=== PATIENT | male | born 1960 | race Caucasian/White ===

== ENCOUNTER 2017-02-24 06:21 | Outpatient (CLI) | payer BC ==
[~2017-02-24] VITALS: Ht 177.8 cm; Wt 96.8 kg
--- NOTE | ~2017-02-24 | HEMODYNAMI ---
PATIENT:SHERRI SANCHEZ MEDICAL RECORD: [id number] : 60 LOCATION:[facility] ADMISSION DATE: 02/24/17 Generatedon:02/24/201710:00 Patient name: SHERRI SANCHEZ Patient #: [id number] SSN: : 1960 Date of study: 02/24/2017 Page: Of Hemodynamic Procedure Report Patient Data Patient Demographics Procedure consent was obtained First Name: SHERRI Gender: Male Last Name: DANIEL : 1960 Patient #: [id number] Age: 56 year(s) Race: Additional ID: [id number] Contact details Address: [place] [address] State: [place] City: [place] Zip code: [address] Past Medical History Allergies Allergen Reaction Date Comments Reported Statins 02/24/2017 Admission Admission Data Admission Date: 02/24/2017 Admission Time: 6:21 Procedure Procedure Types Cath Procedure Diagnostic Procedure LHC LHC w/Coronaries Miscellaneous Procedures Moderate Sedation up to 30 minutes Procedure Description Procedure Date Procedure Date: 02/24/2017 Procedure Start Time: 9:43 Procedure End Time: 10:00 Procedure Staff Name Function Robbie Bailey MD Performing Physician Leticia Biswas RT Scrub Michael Landa RN Nurse Eklin Raymundo RT Scrub Marquita Cheng RT Monitor Procedure Data Cath Procedure Fluoroscopy Diagnostic fluoroscopy Total fluoroscopy Time: 3.7 time: 3.7 min min Diagnostic fluoroscopy Total fluoroscopy dose: 665 dose: 665 mGy mGy Contrast Material Contrast Material Type Amount (ml) Isovue 300 73 Entry Location Entry Primary Successful Side Size Upsize Upsize Entry Closure Santana ccessful Closure Location (Fr) 1 (Fr) 2 (Fr) Remarks Device Remarks Radial Right 6 Fr Mechanical artery Short Compression Estimated blood loss: 5 ml Diagnostic catheters Device Type Used For End Catheter Placement Terumo 5Fr Zane 110cm LV Angiography catheter Terumo 5Fr Zane 110cm Right Coronary catheter Angiography Terumo 5Fr Zane 110cm Left Coronary catheter Angiography Procedure Complications No complications Procedure Medications Medication Administration Route Dosage 0.9% NaCl I.V. 100 ml/hr Oxygen NC 2 l/min Heparin Flush Bag added to field 2 bags (1000units/500ml NS) Radial Cocktail added to field 1 syringe (Verapomil 2mg/Nitro 400mcg/Heparin 1500units) Versed I.V. 2 mg Fentanyl I.V. 100 mcg Radial Cocktail I.A. 1 syringe (Verapomil 2mg/Nitro 400mcg/Heparin 1500units) Hemodynamics Rest Heart Rate: 60 (bpm) Pressure Samples Time Site Value (mmHg) Purpose Heart Use Rate(bpm) 9:48 LV 139/-1,11 EDP 72 Gradients Valve Time Site Site Mean SEP/DFP Peak To Heart Use 1 2 (mmHg) (sec/min) Peak Rate (mmHg) (bpm) Aortic 9:49 LV AO 56 Snapshots Pre Cath Intra NCS Post Cath Vital Signs Time Heart Resp SPO2 etCO2 [id number] NIBP (mmHg) Rhythm Pain Sedation Rate (ipm) (%) (mmHg) (mmHg) Status Level (bpm) 9:28:23 57 17 99 0 0 133/76(106) NSR 0 (11) 10(A) , No pain 9:32:41 58 15 98 0 0 121/71(116) NSR 0 (11) 10(A) , No pain 9:36:55 66 16 97 0 0 125/72(105) NSR 0 (11) 10(A) , No pain 9:41:11 60 15 97 0 0 135/70(111) NSR 0 (11) 10(A) , No pain 9:45:23 54 16 95 0 0 120/74(98) NSR 0 (11) 10(A) , No pain 9:49:37 89 14 94 0 0 112/68(83) NSR 0 (11) 10(A) , No pain 9:53:49 66 16 93 0 0 112/67(100) NSR 0 (11) 10(A) , No pain 9:58:48 77 13 96 0 0 Measuring NSR 0 (11) 10(A) , No pain 9:58:50 76 13 96 0 0 132/73(99) NSR 0 (11) 10(A) , No pain Medications Time Medication Route Dose Verified Delivered Reason Notes E ffectiveness by by 9::26 0.9% NaCl I.V. 100 Michael Michael Per ml/hr Syeda Landa physician RN RN 9::44 Oxygen NC 2 l/min Michael Michael Per Syeda alvarez RN RN 9:27:04 Heparin Flush added 2 bags Michael Michael used for Bag to Syeda Landa procedure (1000units/500ml field RN RN NS) 9:29:43 Radial Cocktail added 1 Michael Michael for (Verapomil to syringe Lorigan Syeda vasodilation 2mg/Nitro field RN RN 400mcg/Heparin 1500units) 9:40:04 Versed I.V. 2 mg Michael Michael for sedation Syeda Landa RN RN 9:40:20 Fentanyl I.V. 100 mcg Michael Michael for sedation Syeda Landa RN RN 9:47:37 Radial Cocktail I.A. 1 Michael Robbie for (Verapomil syringe Syeda Bailey MD vasodilation 2mg/Nitro RN 400mcg/Heparin 1500units) Procedure Log Time Note 9:09:00 Elkin RANGEL(R) sent for patient. Start room use. 9:09:01 Time tracking: Regular hours 9:09:05 Plan of Care:Hemodynamics will remain stable., Cardiac rhythm will remain stable., Comfort level will be maintained., Respiratory function will remain adequate., Patient/ family verbilizes understanding of procedure., Procedure tolerated without complication., Recovers from procedure without complications.. 9:23:33 Patient received from Pre/Post Procedure Room to [facility] 1 Alert and oriented. Tansferred to table in Supine position. 9:23:34 Warm blankets applied, and inez hugger turned on for patient comfort. 9:23:34 Correct patient and procedure confirmed by team. 9:23:36 Signed procedure consent form obtained from patient. 9:23:37 ECG and BP/O2 sat monitors applied to patient. 9:26:26 0.9% NaCl 100 ml/hr I.V. was administered by Michael Landa RN; Per physician; 9::44 Oxygen 2 l/min NC was administered by Michael Landa RN; Per physician; 9:27:04 Heparin Flush Bag (1000units/500ml NS) 2 bags added to field was administered by Michael Landa RN; used for procedure; 9:27:14 Vital chart was started 9:29:43 Radial Cocktail (Verapomil 2mg/Nitro 400mcg/Heparin 1500units) 1 syringe added to field was administered by Michael Landa RN; for vasodilation; 9:35:54 Rhythm: sinus bradycardia 9:35:56 Full Disclosure recording started 9:36:05 H&P Date Dictated: 02/15/2017 Within 30 days and on chart., H&P Addendum completed by physician on day of procedure. (MUST COMPLETE FOR ALL OUTPATIENTS). 9:36:08 Pre-procedure instructions explained to patient. 9:36:08 Pre-op teaching completed and patient verbalized understanding. 9:36:11 Family in patients room. 9:36:13 Patient NPO since Midnight. 9:36:22 Patient allergic to Statins 9:36:24 Is the patient allergic to Iodine/contrast media? No. 9:36:26 Is patient on blood thinner?No 9:36:30 Patient diabetic? No. 9:37:45 Previous problem with sedation/anesthesia? No ? 9:37:46 Snore? Yes 9:37:47 Sleep apnea? No 9:37:48 Deviated septum? No 9:37:49 Opens mouth fully? Yes 9:37:50 Sticks out tongue? Yes 9:37:51 Airway obstruction? No ? 9:37:53 Dentures? No ? 9:37:56 Pre procedure: right dorsailis pedis pulse 2+ Normal; easily identifiable; not easily obliterated 9:37:58 Modified Elkin's test Ulnar < 7 seconds 9:38:00 Patient pain scale 0/10 ?. 9:38:04 IV patent on arrival in right hand with 0.9% NaCl at O. 9:38:10 Lab results completed and on chart. 9:38:12 Right Radial & Right Groin area was prepped with chlora-prep and draped in sterile fashion 9:38:14 Alarms reviewed by R. N. 9:38:14 Sharps counted by scrub and verified by R.N. 9:38:17 Use device set Radial Dx 9:38:18 Acist Syringe opened to sterile field. 9:38:19 Medline Cath Pack opened to sterile field. 9:38:19 Bag Decanter opened to sterile field. 9:38:19 Terumo 6Fr Slender Glidesheath opened to sterile field. 9:38:20 [place] 260cm J .035 wire opened to sterile field. 9:38:20 Acist Hand Control opened to sterile field. 9:38:20 Acist Manifold opened to sterile field. 9:38:21 Tegaderm 4 x 4 opened to sterile field. 9:38:21 MBrace Wrist Support opened to sterile field. 9:38:26 Cook 21G 4cm Radial Needle opened to sterile field. 9:38:33 Final Timeout: patient, procedure, and site verified with staff and physician. All members of the team are in agreement. 9:38:35 Right Radial site verified by team. 9:38:38 Physical assessment completed. ASA score P 2 - A patient with mild systemic disease as per Robbie Bailey MD. 9:38:41 Sedation plan: IV Moderate Sedation Versed, Fentanyl 9:40:04 Versed 2 mg I.V. was administered by Michael Landa RN; for sedation; 9:40:20 Fentanyl 100 mcg I.V. was administered by Michael Landa RN; for sedation; 9:40:34 Zero performed for pressure channel P1 9:40:43 Baseline sample Acquired. 9:43:13 Procedure started. 9:43:54 Local anesthetic to right radial artery with Lidocaine 2% by Robbie Bailey MD.INITIAL ACCESS ONLY 9:46:10 A 6 Fr Short sheath was inserted into the Right Radial artery 9:47:27 A Terumo 5Fr Zane 110cm catheter was advanced over the wire and used for LV Angiography. 9:47:37 Radial Cocktail (Verapomil 2mg/Nitro 400mcg/Heparin 1500units) 1 syringe I.A. was administered by Robbie Bailey MD; for vasodilation; 9:49:25 LV gram done using FLORES 9:49:29 EF : 55 % 9:49:30 LV hemodynamics recorded. 9:49:32 Injector settings: Ml/sec: 5, Volume: 15, 9:50:45 A Terumo 5Fr Zane 110cm catheter was advanced over the wire and used for Right Coronary Angiography. 9:51:47 A Terumo 5Fr Zane 110cm catheter was advanced over the wire and used for Left Coronary Angiography. 9:55:24 Catheter removed. 9:55:49 Sheath removed intact; hemostasis achieved with Mechanical Compression to the Right Radial artery. 9:55:59 Procedure ended.(Physican Out) 9:56:13 Terumo TR Band Standard opened to sterile field. 9:56:33 Fluoroscopy time 03.70 minutes. 9:56:37 Flurop Dose total: 665 9:56:37 Fluoroscopy dose: 665 mGy 9:57:15 Contrast amount:Isovue 300 73ml. 9:57:17 Sharps counted by scrub and verified by R.N. 9:57:19 TR band inflated with 12cc of air. 9:57:24 Insertion/operative site no bleeding no hematoma. 9:57:31 Post right radial artery:stable, clean and dry 9:57:33 Post Procedure Pulses reassessed and unchanged 9:57:36 Post-procedure physical assessment completed. ASA score P 2 - A patient with mild systemic disease as per Robbie Bailey MD. 9:57:41 Post procedure rhythm: unchanged. 9:57:43 Estimated blood loss: 5 ml 9:57:46 Post procedure instruction explained to patient.Patient verbalizes understanding. 9:57:48 Patient needs reinforcement of post procedure teaching. 9:58:04 Procedure type changed to Cath procedure, Diagnostic procedure, LHC, LHC w/Coronaries, Miscellaneous Procedures, Moderate Sedation up to 30 minutes 9:58:10 Procedure Complication : No complications 9:58:12 See physician's report for complete and final results. 9:59:13 Procedure and supply charges have been captured, reviewed, submitted and are correct. 10:00:12 Vital chart was stopped 10:00:17 Report given to Pre/Post Procedure Room. 10:00:20 Patient transfered to Pre/Post Procedure Room with Stretcher. 10:00:28 Procedure ended. 10:00:28 Full Disclosure recording stopped 10:00:31 End room use (Document Last) Device Usage Item Name Manufacture Quantity Catalog Hospital Part Current Minimal Lot# / Number Charge Number Stock Stock Serial# Code Elieserist Acist 1 [id number] [id number] [id number] [id number] 20 Syringe [employer] Medline Cardinal 1 [id number] 04338 147644 5 Cath Pack Health Bag Microtek 1 2002S 437236 00441 [id number] 5 [employer] Terumo 6Fr Terumo 1 [id number] 265056 962033 456413 [address] [place] [facility] [place] 1 147686 400944 470467 968218 30 260cm J .035 wire Acist Hand Acist 1 45987 161831 124356 905799 5 Control [employer] Inc Acist Acist 1 83210 977112 843547 815255 5 Manifold [employer] Inc Tegaderm 4 3M 1 1626W 692252 481782 078940 5 x 4 MBrace Advanced 1 140-0250-00 856602 49669 377590 5 Wrist Vascular Support [employer] Cook 21G Cook Medical 1 [id number] 868844 385354 660501 5 4cm Radial Needle Terumo 5Fr Terumo 1 40-4139 305835 556357 914563 5 Zane 110cm catheter Terumo TR Terumo 1 [id number] 903329 790125 373905 40 Band Standard Signature Audit Hope Stage Time Signature Unsigned Intra-Procedure 02/24/2017 Marquita 10:00:41 AM Counts RT(R) Signatures Monitor : Marquita Signature : Counts RT Date : Time : [id number] [place] [address]
[~2017-02-24 06:21] MED LIST: ACETAMINOPHEN500 M1 PO; ASCORBIC ACID500 MG PO; ASPIRIN325 MG PO; BAYER CHEWABLE81 MG PO; CO Q-10200 MG PO; EFFIENT10 MG PO; EXFORGE 10-3201 TAB PO; FISH OIL 1,2001 CAP PO; FOLTX TABLET1 EACH PO; NAPROSYN500 MG PO; OMEGA-3100 MG PO; PLAVIX75 MG PO; PRAVACHOL20 MG PO; RED YEAST RICE600 MG PO; TOPROL XL50 MG PO; TURMERIC CURCUMIN; ULTRAM50 MG PO
[2017-02-24] MEDS ORDERED: ZETIA10 MG (07:08)
[2017-02-24] MEDS ORDERED: FENOFIBRATE54 MG PO (07:09)
[2017-02-24] MEDS ORDERED: CLARITIN 10 MG10 MG PO (07:10)
[2017-02-24] MEDS ORDERED: VITAMIN D5000 UNIT PO (07:11)
[2017-02-24] MEDS ORDERED: VITAMIN B-121000 MCG PO (07:12)
[2017-02-24] MEDS ORDERED: RESVERATROL (07:13)
[2017-02-24] MEDS ORDERED: OLIVE LEAF PO (07:14)
[2017-02-24] MEDS ORDERED: [UNRECOGNIZED DRUG - OTHER] PO (07:15)
[2017-02-24] MEDS ORDERED: OMEGA-3100 MG PO (07:16)
[2017-02-24] MEDS ORDERED: GOTU KOLA PO (07:16)
[2017-02-24] MEDS ORDERED: CO Q-10100 MG PO (07:17)
[2017-02-24] MEDS ORDERED: ASCORBIC ACID500 MG PO (07:17)
[2017-02-24] MEDS ORDERED: APPLE CIDER VINEGAR (07:18)
[2017-02-24 07:22] VITALS: BP 126/79; Ht 177.8 cm; Wt 96.8 kg
[2017-02-24 07:39] LABS: BASOPHILS 0.2 % (0-2); EOSINOPHILS 1.6 % (0-7); HEMATOCRIT 42.8 % (42.0-54.0); HEMOGLOBIN 14.6 g/dL (13.5-17.5); IMMATURE GRANULOCYTES 0.2 % (0-5); LYMPHOCYTES 26.2 % (15-50); MCH 30.9 pg (26.0-34.0); MCHC 34.1 g/dL (31.0-37.0); MCV 90.7 fL (80.0-100.0); MEAN PLATELET VOLUME 9.4 fL (7.4-10.4); MONOCYTES 13.8 % (2-11); RBC 4.72 10x6/uL (4.20-6.10); RDW 13.4 % (11.5-14.5); WBC 6.1 10x3/uL (4.8-10.8)
[2017-02-24 07:54] LABS: PLATELET COUNT 350 10x3/uL (130-400)
[2017-02-24 08:01] LABS: ANION GAP 13.1 mmol/L (8-16); CALCIUM 8.9 mg/dL (8.5-10.1); CARBON DIOXIDE 25.9 mmol/L (21.0-32.0); CREATININE - SERUM 1.1 mg/dL (0.6-1.3)
--- NOTE | 2017-02-24 10:22 | NUR ---
1009 RECEIVED PT FROM ED MANAGER, PT IS ALERT. DENIES ANY C/O CHEST PAIN OR NAUSEA. TR BAND TO RIGHT HAND IS CDI, NO BLEEDING OR HEMATOMA NOTED. FAMILY AT BEDSIDE, CALL LIGHT IS IN REACH. RR EVEN AND UNLABORED. CALL LIGHT IN REACH.
--- NOTE | 2017-02-24 10:25 | NUR ---
1025 PT DENIES ANY C/O. TR BAND CDI. FAMILY AT BEDSIDE. CALL LIGHT IN REACH.
--- NOTE | 2017-02-24 11:06 | NUR ---
1045 PT DENIES ANY C/O. TR BAND CDI, NO BLEEDING OR HEMATOMA NOTED. AT BEDSIDE.
--- NOTE | 2017-02-24 11:07 | NUR ---
1100 2 CC OF AIR REMOVED FROM TR BAND WITH OOZING NOTED, AIR REINSTILLED AND OOZING STOPPED. WILL CONTINUE TO MONITOR, PT DENIES ANY C/O.
--- NOTE | 2017-02-24 11:36 | NUR ---
1135 3 CC OF AIR REMOVED FROM TR BAND WITH NO BLEEDING OR HEMATOMA NOTED. PT DENIES ANY C/O OR NEEDS AT THIS TIME. FAMILY AT BEDSIDE.
--- NOTE | 2017-02-24 12:03 | NUR ---
1145 3 CC OF AIR REMOVED FROM TR BAND, NO BLEEDING OR HEMATOMA NOTED. WILL CONTINUE TO MONITOR.
--- NOTE | 2017-02-24 12:22 | NUR ---
1215 ALL AIR REMOVED FROM TR BAND WITH NO BLEEDING OR HEMATOMA NOTED. WILL CONTINUE TO MONITOR. FAMILY AT BEDSIDE. CALL LIGHT IS IN REACH.
--- NOTE | 2017-02-24 13:05 | NUR ---
1245 NO BLEEDING OR HEMATOMA NOTED AT CATH ENTRY SITE, 2X2 AND TEGADERM IN PLACE. IV HAS BEEN DC'D WITH CATH INTACT AND PT IS DRESSING FOR DC TO HOME. 1300 REVIEWED DC INSTRUCTIONS WITH PT WHO VERBALIZES UNDERSTANDING. PT HAS VOIDED QS. DENIES ANY C/O. DRESSING TO RIGHT WRIST CDI. PT ESCORTED TO PRIVATE AUTO VIA WC BY STAFF WITH DRIVING HIM HOME.
== END 2017-02-24 13:00 | disposition home or self-care (01) ==
LOC: D.CATH 06:21
PROVIDERS: Internal Medicine Cardiovascular Disease
DX: I25.10 Atherosclerotic heart disease of native coronary artery without angina pectoris (principal); R94.30 Abnormal result of cardiovascular function study, unspecified; I10 Essential (primary) hypertension; E78.5 Hyperlipidemia, unspecified; Z01.812 Encounter for preprocedural laboratory examination